=== PATIENT | male | born 1940 | race Caucasian/White ===

== ENCOUNTER 2022-07-24 13:47 | Emergency (ER) | payer OTHER, MEDICARE ==
[~2022-07-24] VITALS: Ht 180.3 cm; Wt 127.0 kg
[2022-07-24 14:10] LABS: Calcium, Ionized (POC) 1.15 mmol/L (1.10-1.46); Chloride (POC) 105 mmol/L (98-108); Creatinine (POC) 1.1 mg/dL (0.8-1.3); Glucose (ISTAT POC) 108 mg/dL (70-99); Hemoglobin (POC) 12.6 g/dL (13.5-17.5); Potassium (POC) 4.3 mmol/L (3.5-5.5); Sodium (POC) 140 mmol/L (135-148); Total CO2 (POC) 24 mmol/L (21-32)
[2022-07-24] MEDS ORDERED: TAMSULOSIN HCL0.4 M1 PO (14:49)
[2022-07-24] MEDS ORDERED: LIPITOR80 MG PO (14:49)
[2022-07-24] MEDS ORDERED: DULOXETINE HCL60 M1 PO (14:50)
[2022-07-24] MEDS ORDERED: TRAZ100 PO (14:50)
== END 2022-07-24 16:28 | disposition home or self-care (01) ==
LOC: ER 13:47
PROVIDERS: Emergency Medicine
DX: S30.1XXA Contusion of abdominal wall, initial encounter (principal); S20.219A Contusion of unspecified front wall of thorax, initial encounter; S60.812A Abrasion of left wrist, initial encounter; S60.811A Abrasion of right wrist, initial encounter; R40.2410 Glasgow coma scale score 13-15, unspecified time; F32.A Depression, unspecified; V43.52XA Car driver injured in collision with other type car in traffic accident, initial encounter; Z88.5 Allergy status to narcotic agent; Z79.899 Other long term (current) drug therapy
CPT/HCPCS: 71260; 72040; 74177; 80047; 85014; J1170; J7030; Q9967

== ENCOUNTER → 2022-08-27 | Outpatient (CLI) | payer MEDICARE, OTHER ==
[~2022-08-27] MED LIST: DULOXETINE HCL60 M1 PO; LIPITOR80 MG PO; TAMSULOSIN HCL0.4 M1 PO; TRAZ100 PO
== END | disposition home or self-care (01) ==
LOC: LAB 07:59 → LAB SHORT 07:59 → PLD 07:59
DX: C44.629 Squamous cell carcinoma of skin of left upper limb, including shoulder (principal)
CPT/HCPCS: 88305

== ENCOUNTER → 2022-09-21 | Outpatient (CLI) | payer OTHER, MEDICARE | LOC: LAB SHORT 15:14 | DX: C44.629 Squamous cell carcinoma of skin of left upper limb, including shoulder (principal) | CPT/HCPCS: 88305 ==

== ENCOUNTER → 2022-10-05 | Outpatient (CLI) | payer MEDICARE, OTHER | END | disposition home or self-care (01) | LOC: LAB SHORT 12:19 | DX: C44.41 Basal cell carcinoma of skin of scalp and neck (principal) | CPT/HCPCS: 88305 ==

== ENCOUNTER → 2022-10-27 | Outpatient (CLI) | payer MEDICARE, OTHER | END | disposition home or self-care (01) | LOC: LAB SHORT 15:04 | DX: C44.41 Basal cell carcinoma of skin of scalp and neck (principal) | CPT/HCPCS: 88305 ==

== ENCOUNTER → 2023-09-27 | Outpatient (CLI) | payer MEDICARE, OTHER ==
[~2023-09-27] MED LIST changes: +AERONEB GO1 EACH XX; +ALBU8HFA2 INH; +DOXY100 PO; +FLUT1DIS2 INH; +FURO20 PO; +IPRAT-ALBUT 0.5-3 ML INH; +PRED20 PO; +Prednisone10 MG PO; +SPIRIVA RESPIMAT4 G3 INH
== END ==
LOC: LAB SHORT 12:40 → LAB 12:40
DX: C44.319 Basal cell carcinoma of skin of other parts of face (principal)
CPT/HCPCS: 88305

== ENCOUNTER → 2023-11-27 | Outpatient (CLI) | payer MEDICARE, OTHER | LOC: LAB 15:23 → LAB SHORT 15:23 | DX: L01.03 Bullous impetigo (principal) | CPT/HCPCS: 87070; 87075; 87077; 87186; 87205 ==

== ENCOUNTER → 2023-12-07 | Outpatient (CLI) | payer MEDICARE ==
[2023-12-08 09:11] LABS: CALCIUM, SERUM 8.6 mg/dL (8.6-10.2); CREATININE, SERUM 0.87 mg/dL (0.76-1.27); POTASSIUM, SERUM 4.4 mmol/L (3.5-5.2)
== END ==
LOC: LAB SHORT 15:13 → LAB 15:13
PROVIDERS: Family Medicine
DX: R60.0 Localized edema (principal)
CPT/HCPCS: 80048; 83880

== ENCOUNTER → 2023-12-07 | Outpatient (CLI) | payer MEDICARE | LOC: LAB 08:43 → LAB SHORT 08:43 | DX: L30.8 Other specified dermatitis (principal) | CPT/HCPCS: 88305; 88312 ==

== ENCOUNTER → 2023-12-08 | Outpatient (CLI) | payer MEDICARE, OTHER | LOC: LAB SHORT 16:12 → LAB 16:12 | DX: L08.0 Pyoderma (principal) | CPT/HCPCS: 87070; 87077; 87186; 87205 ==

== ENCOUNTER 2025-09-18 07:20 | Day surgery (SDC) | payer MEDICARE, OTHER ==
[~2025-09-18] VITALS: Ht 180.3 cm; Wt 140.1 kg
[~2025-09-18 07:20] MED LIST changes: +ALBU90OI INH; +ALLEGRA ALLERG180 MG PO; +ASPI81CH PO; +ATOR40TA PO; +BUDESONIDE0.5 MG/2 M INH; +Balanced Salt Epinephrine Irrigation Solution 500 mL IR SCH; +FAMO40 PO; +FentaNYL Citrate 50 MCG/ML 2 ML Injection ONE; -IPRAT-ALBUT 0.5-3 ML INH; +IPRAT-ALBUT 0.5-3 ML NEB; +Indomethacin25 MG PO; -LIPITOR80 MG PO; +MONT10T PO; +Midazolam HCl 1MG / ML 2ML Vial ONE; +Moxifloxacin HCL 0.5 MG/0.1 ML 0.4MLSYR LEFTEYE SCH; +NS 500 ML IV ONE; +Oxybutynin Chlo10 MG PO; +PHENYLEPHRINE\\TROPICAMIDE\\TETRACAINE OPHTHALMIC DILATING SOLN LEFTEYE PRN; +Povidone-Iodine 450 DROP/30 ML Solution LEFTEYE SCH; +Povidone-Iodine 450 DROP/30 ML Solution ONE; +TAMS.4ER PO; +Tetracaine HCl/Pf 0.5% Opth Soln 4 ml ONE
[2025-09-18] MEDS ORDERED: NS 500 ML IV ONE (07:58)
--- NOTE | 2025-09-18 07:58 | NUR ---
09/18/25 0758 Slade Whittington CALL LIGHT WITHIN REACH. EYE DROPS AROUND [id number]
[2025-09-18 08:55] VITALS: BP 107/67
== END 2025-09-18 09:11 | disposition home or self-care (01) ==
LOC: ORSCSDS 07:20
PROVIDERS: Student in an Organized Health Care Education/Training Program
PROC: 08RK3JZ Replacement of Left Lens with Synthetic Substitute, Percutaneous Approach (ICD-10-PCS; principal; 2025-09-18 08:00)
DX: H25.812 Combined forms of age-related cataract, left eye (principal); J44.9 Chronic obstructive pulmonary disease, unspecified; I25.2 Old myocardial infarction; Z79.82 Long term (current) use of aspirin; Z79.899 Other long term (current) drug therapy; Z87.891 Personal history of nicotine dependence
CPT/HCPCS: J2250; J3010; J7040; V2632

== ENCOUNTER 2025-09-24 12:57 | Inpatient (IN) | payer MEDICARE, OTHER ==
[2025-09-24] VITALS (17 sets, daily range): BP systolic 96–148; BP diastolic 64–102
[~2025-09-24] VITALS: Ht 180.3 cm; Wt 141.5 kg
[~2025-09-24 12:57] MED LIST changes: -Balanced Salt Epinephrine Irrigation Solution 500 mL IR SCH; -FentaNYL Citrate 50 MCG/ML 2 ML Injection ONE; -Midazolam HCl 1MG / ML 2ML Vial ONE; -Moxifloxacin HCL 0.5 MG/0.1 ML 0.4MLSYR LEFTEYE SCH; -NS 500 ML IV ONE; -PHENYLEPHRINE\\TROPICAMIDE\\TETRACAINE OPHTHALMIC DILATING SOLN LEFTEYE PRN; -Povidone-Iodine 450 DROP/30 ML Solution LEFTEYE SCH; -Povidone-Iodine 450 DROP/30 ML Solution ONE; -Tetracaine HCl/Pf 0.5% Opth Soln 4 ml ONE
[2025-09-24 13:26] LABS: BASOPHILS ABSOLUTE AUTO 0.04 K/mm3 (0.00-0.23); BASOPHILS PERCENT AUTO 0 % (0-2); EOSINOPHILS ABSOLUTE AUTO 0.21 K/mm3 (0.00-0.68); EOSINOPHILS PERCENT AUTO 1 % (0-6); Hematocrit 42.4 % (37.0-53.0); Hemoglobin 13.6 g/dL (13.5-17.5); IMMATURE GRAN ABSOLUTE AUTO 0.09 K/mm3 (0.00-0.10); IMMATURE GRAN PERCENT AUTO 1 % (0-1); LYMPHOCYTES ABSOLUTE AUTO 1.35 K/mm3 (0.84-5.20); LYMPHOCYTES PERCENT AUTO 9 % (21-46); MONOCYTES ABSOLUTE AUTO 1.26 K/mm3 (0.16-1.47); MONOCYTES PERCENT AUTO 8 % (4-13); Mean Corpuscular HGB Conc 32.1 g/dL (31.5-36.5); Mean Corpuscular Volume 93 fL (80-100); NEUTROPHILS ABSOLUTE AUTO 12.19 K/mm3 (1.96-9.15); NEUTROPHILS PERCENT AUTO 81 % (41-73); NRBC ABSOLUTE 0.00 K/mm3 (0.00-0.02); NRBC Auto 0.0 /100 WBC (0.0-0.2); Platelet Count 230 K/mm3 (150-400); RDW Coefficient Variation 13.4 % (11.7-14.2); RDW Standard Deviation 45.7 fL (35.1-46.3)
[2025-09-24 14:20] LABS: Alanine Aminotransfer (ALT/SGP 24.0 U/L (12-78); Albumin, Blood 3.7 g/dL (3.4-5.0); Albumin/Globulin Ratio 1.0 (0.8-1.8); Anion Gap 10.0 mmol/L (3-11); Aspartate Aminotrans (AST/SGOT 16.0 U/L (12-37); Bilirubin, Total 0.8 mg/dL (0.1-1.0); Blood Urea Nitrogen 12.0 mg/dL (8-24); CO2, Blood 25.0 mmol/L (21-32); Calcium, Blood 8.9 mg/dL (8.5-10.1); Chloride, Blood 106.0 mmol/L (98-108); Creatinine, Blood 0.82 mg/dL (0.60-1.20); Globulin, Blood 3.6 g/dL (2.2-4.0); Glucose, Blood 146.0 mg/dL (70-99); Potassium, Blood 4.0 mmol/L (3.5-5.5); Sodium, Blood 137.0 mmol/L (136-145); Total Protein, Blood 7.3 g/dL (6.4-8.2)
[2025-09-24] MEDS ORDERED: Heparin Sodium 5000 Units/ML 1ML MDV IV ONE (14:20)
[2025-09-24] MEDS ORDERED: Midazolam HCl 1MG / ML 2ML Vial ONE (14:27)
[2025-09-24] MEDS ORDERED: Verapamil HCL 2.5 MG/ML 2ML Injection ONE (14:27)
[2025-09-24] MEDS ORDERED: Nitroglycerin 2 MG/20 ML BTL ONE (14:28)
[2025-09-24] MEDS ORDERED: NS 2,000 ML IV ONE (14:28)
[2025-09-24] MEDS ORDERED: Heparin Sodium 1000 Units/ML 10ML MDV ONE (14:28)
[2025-09-24] MEDS ORDERED: NS 250 ML IV ONE (14:28)
[2025-09-24] MEDS ORDERED: Morphine Sulfate 4 MG/1 ML Injection ONE (14:29)
[2025-09-24] MEDS ORDERED: Phenylephrine HCl 100 MCG/ML-NS 10MLSYR (1MG/10ML) ONE (14:49)
[2025-09-24] MEDS ORDERED: NITR.4SL SL (14:49)
[2025-09-24] MEDS ORDERED: DOXYCYCLINE HY100 M1 PO (14:49)
[2025-09-24] MEDS ORDERED: Niacinamide500 MG PO (14:50)
[2025-09-24] MEDS ORDERED: Ondansetron HCl 2 MG / ML 2ML Vial ONE (14:53)
[2025-09-24] MEDS ORDERED: Albuterol 2.5 MG/3 ML VIAL ONE (15:11)
[2025-09-24] MEDS ORDERED: Diltiazem HCl 5 MG / ML 5ML Vial ONE (15:35)
[2025-09-24] MEDS ORDERED: Ondansetron HCl 2 MG / ML 2ML Vial IV PRN (15:40)
[2025-09-24] MEDS ORDERED: Budesonide 0.5 MG/2 ML RESP INH SCH (15:45)
[2025-09-24] MEDS ORDERED: Tiotropium Bromide 2.5 MCG/ACT MIST INHAL (10 ACT/4 GM) INH SCH (15:45)
[2025-09-24] MEDS ORDERED: FLU VACC TS2025(65UP)/MF59C/PF 45 MCG/0.5 ML SYRINGE IM SCH (15:45)
[2025-09-24] MEDS ORDERED: Albuterol 2.5 MG/3 ML VIAL INH PRN (15:50)
[2025-09-24 16:13] LABS: CHOL/HDL RATIO 2.7; Cholesterol 117 mg/dL (50-200); HDL Cholesterol 44 mg/dL (>39); LDL/HDL RATIO 1.4; Low Density Lipoprotein Chol 63 mg/dL (0-110); Triglycerides 48 mg/dL (30-160); Very Low Density Lipoprot Chol 9 mg/dL (6-32)
[2025-09-24] MEDS ORDERED: Indomethacin25 MG PO (16:37)
[2025-09-24] MEDS ORDERED: ALBU8HFA2 (16:42)
[2025-09-24] MEDS ORDERED: XYZAL5 MG PO (16:42)
[2025-09-24 17:08] LABS: Anti-Xa UFH, PHA Monitoring 0.85 IU/mL; Prothrombin Time Results 11.6 Sec (9.7-11.5)
[2025-09-24] MEDS ORDERED: Heparin Sodium,Porcine/0.5 NS 500 ML IV SCH (17:25)
--- NOTE | 2025-09-24 21:20 | NUR ---
ASSUMPTION OF CARE NOTE: PT RELAXING IN BED AND HAS TR IN PLACE TO RW WITH SOME OOZING AND DRIED BLOOD AT SITE BUT WNL. PT REPORTS 6/10 CP IN STERNUM THAT DOES NOT RADIATE-PROVIDER ORDERED OXYCODONE 5MG Q4 PRN FOR PAIN. PT HAS NOT YET VOIDED YET BUT URINAL AT BEDSIDE. BLADDER SCAN SHOWED 281 ML IN BLADDER A&OX4 AND ABLE TO MAKE NEEDS KNOWN. PATENT PIV TO R&LAC. WILL CONTINUE TO SLOWLY RELEASE AIR FROM TR BAND AND ASSESS SITE. HEPARIN INFUSING AT 12 U/KG/HR. PT QUINAULT AND DENTURES IN CUP AT BEDSIDE SOAKING. PT CURRENTLY ON 5L NC AND SPO2 >94%. SBP'S 110'S-120'S AND HR IN 90'S. PT HAS CALL LIGHT IN REACH AND BED LOW AND LOCKED FOR SAFETY.
--- NOTE | 2025-09-24 23:34 | NUR ---
TR BAND REMOVED: STARTED REMOVING AIR FROM TR BAND AT 1999 AND FINISHED REMOVING AIR AT 2213 AND FINAL REMOVAL OF TR BAND AT 2319. SITE IS WNL AND PT HAS GOOD SENSATION AND CAP REFILL TO RIGHT ARM EXTREMITY. PT HAS GOOD SPO2 >92% AND SITE IS C/I/D WITH TAGADERM DRESSING IN PLACE AND ARM BOARD IN PLACE TO R ARM WITH EDUCATION TO PT TO NOT BEND WRIST AND TO KEEP ARM BOARD IN PLACE.
[2025-09-25] VITALS (23 sets, daily range): BP systolic 79–139; BP diastolic 51–83
[2025-09-25 02:04] LABS: BASOPHILS ABSOLUTE AUTO 0.03 K/mm3 (0.00-0.23); BASOPHILS PERCENT AUTO 0 % (0-2); EOSINOPHILS ABSOLUTE AUTO 0.04 K/mm3 (0.00-0.68); EOSINOPHILS PERCENT AUTO 0 % (0-6); Hematocrit 37.5 % (37.0-53.0); Hemoglobin 12.3 g/dL (13.5-17.5); IMMATURE GRAN ABSOLUTE AUTO 0.06 K/mm3 (0.00-0.10); IMMATURE GRAN PERCENT AUTO 0 % (0-1); LYMPHOCYTES ABSOLUTE AUTO 1.97 K/mm3 (0.84-5.20); LYMPHOCYTES PERCENT AUTO 14 % (21-46); MONOCYTES ABSOLUTE AUTO 1.80 K/mm3 (0.16-1.47); MONOCYTES PERCENT AUTO 13 % (4-13); Mean Corpuscular HGB Conc 32.8 g/dL (31.5-36.5); Mean Corpuscular Volume 92 fL (80-100); NEUTROPHILS ABSOLUTE AUTO 9.74 K/mm3 (1.96-9.15); NEUTROPHILS PERCENT AUTO 72 % (41-73); NRBC ABSOLUTE 0.00 K/mm3 (0.00-0.02); NRBC Auto 0.0 /100 WBC (0.0-0.2); Platelet Count 201 K/mm3 (150-400); RDW Coefficient Variation 13.5 % (11.7-14.2); RDW Standard Deviation 45.9 fL (35.1-46.3)
[2025-09-25] MEDS ORDERED: Dose Adjust by Pharmacy XX STA ×3 (02:37→17:14)
[2025-09-25 02:58] LABS: Alanine Aminotransfer (ALT/SGP 19.0 U/L (12-78); Albumin, Blood 3.1 g/dL (3.4-5.0); Albumin/Globulin Ratio 0.9 (0.8-1.8); Anion Gap 8.0 mmol/L (3-11); Aspartate Aminotrans (AST/SGOT 12.0 U/L (12-37); Bilirubin, Total 0.8 mg/dL (0.1-1.0); Blood Urea Nitrogen 19.0 mg/dL (8-24); CO2, Blood 25.0 mmol/L (21-32); Calcium, Blood 8.5 mg/dL (8.5-10.1); Chloride, Blood 107.0 mmol/L (98-108); Creatinine, Blood 1.06 mg/dL (0.60-1.20); Globulin, Blood 3.3 g/dL (2.2-4.0); Glucose, Blood 135.0 mg/dL (70-99); Potassium, Blood 4.1 mmol/L (3.5-5.5); Sodium, Blood 136.0 mmol/L (136-145); Total Protein, Blood 6.4 g/dL (6.4-8.2)
--- NOTE | 2025-09-25 05:59 | NUR ---
SHIFT SUMM: PT HAD A RESTFUL SHIFT AND HEPARIN REMAINS INFUSING AT 14U/KG/HR (SEE FLOWSHEET).PT WAS MEDICATED FOR PAIN PER EMAR THIS SHIFT AND CP DID NOT WORSEN BUT STAYED IN THE STERNUM 6/10 AND DECREASED TO 4/10 CP THAT DID NOT RADIATE. PT WAS ABLE TO SE URINAL WITH ASSISTANCE. PIV'S REMAIN PATENT. TR BAND HAS BEEN REMOVED AND SITE IS C/D/I. PT IS A&OX4 AND ABLE TO MAKE NEEDS KNOWN. SBP 110-120'S AND SPO2 >94% ON 5L NC WHEN AWAKE AND CPAP AT NIGHT.HAS CALL LIGHT IN REACH AND BED LOW AND LOCKED FOR SAFETY.
--- NOTE | 2025-09-25 08:23 | NUR ---
PALLIATIVE CARE CONSULT: CONSULT RECEIVED FOR AD/POLST, ADVANCED CARE PLANNING. REVIEWED MEDICAL RECORD. NO POLST/AD FOUND ON FILE OR THROUGH [facility]. PT ADMITTED FOR STEMI. SPOUSE IESHA IS HEALTHCARE PROXY.
[2025-09-25] MEDS ORDERED: DULoxetine HCL 60 MG Capsule DR PO SCH (09:00)
--- NOTE | 2025-09-25 09:00 | NUR ---
ASSUMED CARE @ 0700 PT AWAKE AND WATCHING TV. ABLE TO MAKE NEEDS KNOWN/CALLS APPROPRIATELY, A&Ox4. AFEBRILE. PT CONTINUES TO BE IN ATRIAL FLUTTER WITH ST ELEVATION FROM PREVIOUS WA, HR IRREGULAR AND RANGES IN THE 60'S-80'S. SPO2 MAINTAINS >92% ON 4L, WHICH IS HIS BASELINE. LUNGS CLEAR/DIM ON AUSCULTATION. TOLERATES PO DIET WELL WITH NORMOACTIVE BOWEL SOUNDS. PT AMBULATES WITH STANDBY ASSIST TO TOILET TO VOID. IV IN L AND R FOREARM WNL. L FOREARM IV INFUSING HEPARIN AT 14U/KG/HR. SEE SHIFT ASSESSMENT.
--- NOTE | 2025-09-25 12:00 | NUR ---
Spiritual Care Visit. Pt. is awake in bed and welcomes my visit. Facilitate a life review and listened with empathy and a calming presence. Though the Pt. verbalized little interest in spiritual care a measusre of rapport is established. COnsidered matters of family and community. Pt. displayed evidence of having been encouraged my the visit and verbalized gratitude.
--- NOTE | 2025-09-25 15:20 | NUR ---
TRANSFER TO PCU: PATIENT ALERT AND ORIENTED X4. MOVING ALL EXTREMITIES. FOLLOWING COMMANDS. COMPLAINS OF PAIN POINTING TO STERNUM AND THROAT. DESCRIBES IT SHARP WHEN BREATHING IN AND RATES IT A 3/10. DENIES NEED FOR PAIN MEDICATION AT THIS TIME. ORIENTED TO ROOM/UNIT AND CALL LIGHT PROVIDED. ON 4L NASAL CANNULA WHICH IS PATIENTS BASELINE. CPAP AT BEDSIDE FOR NOC. SOB UPON MOVING FROM WHEELCHAIR TO BED. LUNG SOUNDS DIMINISHED THROUGHOUT. TELE SHOWING AFIB WITH HR 70'S. SBP 130'S. SCD'S IN PLACE AND HEPARIN INFUSING PER EMAR. BOWEL TONES PRESENT. DENIES ABDOMINAL PAIN/NAUSEA. URINAL AT BEDSIDE. ATTENDS IN PLACE. DENTURES AT BEDSIDE AND DENTAL HYGENIST IN ROOM AT THIS TIME. CALL LIGHT IN REACH.
--- NOTE | 2025-09-25 17:29 | NUR ---
SHIFT SUMMARY: PATIENT REMAINS ALERT AND ORIENTED. SITTING UP IN BED AT THIS TIME EATING DINNER. REMAINS ON 4L NASAL CANNULA. INTERMIT STERNAL/CHEST PAIN WITH INSPIRATION. SCD'S IN PLACE. HEPARIN GTT CONTINUES WITH PLAN TO DISCONTINUE TONIGHT WHEN FIRST DOSE OF ELIQUIS IS GIVEN. VITAL SIGNS REMAIN STABLE. DENIES NEEDS AT THIS TIME. CALL LIGHT IN REACH.
[2025-09-26 03:37] VITALS: BP 132/88
[2025-09-26 03:39] LABS: BASOPHILS ABSOLUTE AUTO 0.02 K/mm3 (0.00-0.23); BASOPHILS PERCENT AUTO 0 % (0-2); EOSINOPHILS ABSOLUTE AUTO 0.34 K/mm3 (0.00-0.68); EOSINOPHILS PERCENT AUTO 3 % (0-6); Hematocrit 36.8 % (37.0-53.0); Hemoglobin 12.1 g/dL (13.5-17.5); IMMATURE GRAN ABSOLUTE AUTO 0.06 K/mm3 (0.00-0.10); IMMATURE GRAN PERCENT AUTO 1 % (0-1); LYMPHOCYTES ABSOLUTE AUTO 1.85 K/mm3 (0.84-5.20); LYMPHOCYTES PERCENT AUTO 14 % (21-46); MONOCYTES ABSOLUTE AUTO 1.61 K/mm3 (0.16-1.47); MONOCYTES PERCENT AUTO 12 % (4-13); Mean Corpuscular HGB Conc 32.9 g/dL (31.5-36.5); Mean Corpuscular Volume 91 fL (80-100); NEUTROPHILS ABSOLUTE AUTO 9.12 K/mm3 (1.96-9.15); NEUTROPHILS PERCENT AUTO 70 % (41-73); NRBC ABSOLUTE 0.00 K/mm3 (0.00-0.02); NRBC Auto 0.0 /100 WBC (0.0-0.2); Platelet Count 185 K/mm3 (150-400); RDW Coefficient Variation 13.3 % (11.7-14.2); RDW Standard Deviation 45.2 fL (35.1-46.3)
[2025-09-26 04:28] LABS: Anion Gap 7.0 mmol/L (3-11); Blood Urea Nitrogen 25.0 mg/dL (8-24); CO2, Blood 25.0 mmol/L (21-32); Calcium, Blood 8.8 mg/dL (8.5-10.1); Chloride, Blood 107.0 mmol/L (98-108); Creatinine, Blood 1.13 mg/dL (0.60-1.20); Glucose, Blood 127.0 mg/dL (70-99); Potassium, Blood 3.9 mmol/L (3.5-5.5); Sodium, Blood 135.0 mmol/L (136-145)
--- NOTE | 2025-09-26 04:55 | NUR ---
SHIFT SUMMARY THIS RN ASSUMED CARE OF PATIENT AT 1900. PT A&O X4. ROBINSON DESPITE BILATERAL HEARING AIDES. BED ALARM ON FOR SAFETY. PT APPEARS FORGETFUL AT TIMES. SBA TO BSC. BP STABLE. AFIB WITH HR 80S. ON 4L VIA NC TO MAINTAIN SPO2, WHICH IS PTS BASELINE. RT RADIAL SITE WITH SMALL HEMATOMA, UNCHANGED FROM PREVIOUS SHIFT CHANGE. DRESSING C/D/I. ARMBOARD IN PLACE. BED IN LOWEST POSITION AND CALL LIGHT WITHIN REACH. THIS RN WILL REPORT TO ONCOMING DAYSHIFT RN.
[2025-09-26 08:57] VITALS: BP 141/88
[2025-09-26] MEDS ORDERED: ELIQUIS5 M2 PO (09:36)
[2025-09-26] MEDS ORDERED: CLOP75 PO (09:37)
[2025-09-26] MEDS ORDERED: DILT60ER PO (09:39)
[2025-09-26] MEDS ORDERED: SPIRIVA RESPIMAT4 G3 INH (09:40)
[2025-09-26 09:52] VITALS: BP 144/87
--- NOTE | 2025-09-26 12:00 | NUR ---
MORNING NOTE: THE PT IS A&OX4, 1P ASSIST W/ FWW ON TX, UP IN THE CHAIR FOR MEALS, AND HE MAKES HIS NEEDS KNOWN. THE PT IS ON HIS BL OF 4L NC WITH RESTING IN THE RECLINER. ON TELE HE WAS SR W/ PAC'S, PVC'S AND SOEM TRIGEMENY. BP STABLE. THE PT HAS BEEN WITHOUT ANY ANGINA OR CHEST PRESSURE. RIGHT RADIAL ACCESS FROM ANGIO ON 09/24 HAS A [employer] C/D/I. ARMBOARD IN PLACE TO REMIND THE PT OF RIGHT WRIST RESTRICTIONS. SITE W/O BLEEDING, TENDERNESS, OR HEMATOMA. PLAN FOR PT TO DISCHARGE TODAY. THE PT'S IS PICKING UP THE PT'S MEDICATIONS FROM [facility]. HOME O2 EVALUATION COMPLETED BY RT, THE PT NEEDS 4LNC AT REST AND 6L NC WITH ACTIVITY. AWAITING FOR [facility] TO DELIVER THE NEW PORTABLE OXYGEN TANK. THE PT WILL BE DISCHARGING WITH A ZIO PATCH, AWAITING FOR THE [facility] TO COME PLACE PATCH ON THE PT. SEE NOTES FOR UPDATES.
[2025-09-26 12:02] VITALS: BP 136/82
--- NOTE | 2025-09-26 12:37 | NUR ---
Spiritual Care Visit. 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 Pt. displays evidence of a pleasant spirit and has a firm strong handshake. Facilitated an update. Pt. verbalized an expectation that he would be going home sometime today. Facilitated other life review and listened with interest and empathy. Pt. verbalized gratitude for the spiritual care visit.
--- NOTE | 2025-09-26 15:50 | NUR ---
SHIFT SUMMARY / DC SUMMARY PT IS A&O X4, ABLE TO EXPRESS NEEDS. REQUIRES 1 ASSIST TO TRANSFER WITH FWW DUE TO WEAKNESS, SOB, AND NEUROPATHY. PT SATTING > 93% ON 4L O2 NC. STATES THAT HE IS SOB AT BASELINE AND CONTINUES TO HAVE SOB, ALTHOUGH NO INCREASE FROM USUAL. HOME O2 EVAL COMPLETED WITH RT, DETERMINED THAT PT STILL REQUIRES 4L AT REST AND NEEDS TO INCREASE TO 6L WITH ACTIVITY. RT ALSO EDUCATED PT ON PROPER USE OF INHALER. PT IN SR 80-90s WITH FREQUENT PVCs, PACs, AND TRIGEMINY. BP STABLE, MAPS >65. PT DENIES ANY CHEST PAIN/ DISCOMFORT. PT RECIEVED ZIOPATCH TO WEAR FOR 2 WEEKS POST-DISCHARGE. EDUCATION ON PATCH AND MAIL-RETURN INSTRUCTIONS PROVIDED. ARMBOARD IN PLACE TO REMIND PT OF RADIAL SITE FROM ANGIOGRAM ON 09/24. SITE IS FREE OF BLEEDING, PAIN, OR BRUISING. PT WAS SEEN BY PHYSICAL THERAPY THIS SHIFT AND ROUNDED ON BY DR. TOLEDO WHO PLACED DC ORDERS. CAME TO VISIT PT AND WAS UPDATED ON CARE. SHE PICKED UP PT'S AVALIABLE PRESCRIPTIONS AND STATED THAT SHE WILL GREEN FEED ATTENDANT THE OTHERS WHEN THEY ARE AVAILABLE TOMORROW. DISCHARGE INSTRUCTIONS REVIEWED WITH PT AND , EXTRA ATTENTION ON MEDICATION CHANGES AND RADIAL SITE CARE. PT WHEELED TO EXIT IN WHEELCHAIR BY OSCAR, PURVI IN POSESSION. TO DRIVE HIM HOME. NO FURTHER NOTES FROM THIS RN.
== END 2025-09-26 15:50 | disposition home health service (06) | DRG 281 ==
LOC: ER 12:57 → ICUE 12:59 → PCU 09-25 14:55
PROVIDERS: Emergency Medicine; Student in an Organized Health Care Education/Training Program; ADMIT Internal Medicine
PROC: B2111ZZ Fluoroscopy of Multiple Coronary Arteries using Low Osmolar Contrast (ICD-10-PCS; principal; 2025-09-24)
PROC: 4A023N7 Measurement of Cardiac Sampling and Pressure, Left Heart, Percutaneous Approach (ICD-10-PCS; 2025-09-24)
PROC: B24BZZZ Ultrasonography of Heart with Aorta (ICD-10-PCS; 2025-09-24)
DX: I21.19 ST elevation (STEMI) myocardial infarction involving other coronary artery of inferior wall (principal); Z68.41 Body mass index [BMI] 40.0-44.9, adult; J44.9 Chronic obstructive pulmonary disease, unspecified; E78.5 Hyperlipidemia, unspecified; E66.01 Morbid (severe) obesity due to excess calories; I25.10 Atherosclerotic heart disease of native coronary artery without angina pectoris; N40.0 Benign prostatic hyperplasia without lower urinary tract symptoms; M10.9 Gout, unspecified; F32.A Depression, unspecified; I48.0 Paroxysmal atrial fibrillation; G47.33 Obstructive sleep apnea (adult) (pediatric); K21.9 Gastro-esophageal reflux disease without esophagitis; I49.1 Atrial premature depolarization; Z87.891 Personal history of nicotine dependence; Z79.82 Long term (current) use of aspirin; Z79.899 Other long term (current) drug therapy; Z99.81 Dependence on supplemental oxygen
CPT/HCPCS: 36415; 71046; 76937; 80048; 80053; 80061; 83690; 83880; 84484; 85025; 85347; 85520; 85610; 85651; 85730; 86141; 93005; 93010; 93246; 93458; 94640; 94660; 94664; 94761; 94762; 97110; 97116; 97162; 97530; 99152; 99153; 99285-25; A9270; C1725; C1769; C1887; C1894; C8929; J0461; J1644; J2250; J2270; J2371; J2405; J3246; J7030; J7050; Q9957; Q9967